=== PATIENT | female | born 1995 | race African-American/Black ===

== ENCOUNTER 2016-02-29 19:32 | Emergency (ER) | payer MEDICAID ==
--- NOTE | 2016-02-29 19:41 | EDPRACDOC ---
- General Information Stated Complaint: RECTAL BLEEDING Time Seen by Provider: 02/29/16 19:38 Home Medications: Home Medications Cephalexin Monohydrate [Keflex] 500 mg PO Q6H #20 cap 02/29/16 Allergies/Adverse Reactions: Allergies Allergy/AdvReac Type Severity Reaction Status Date / Time No Known Allergies Allergy Verified 11/30/15 16:44 - History of Present Illness Onset: TODAY HPI: PT STATES SHE HAS HAD BLOOD IN HER STOOL X 3 TODAY, STATES THAT THE BLOOD IS "BURGUNDY" IN COLOR, LOOSE, NO N/V/D, NO ABDOMINAL PAIN, NO FEVER OR CHILLS. PT STATES THAT SHE HAS HAD "SWEATS" TONIGHT, NO CP OR SOBR. PT STATES THAT SHE DRINKS HEAVILY EVERYDAY, "FIFTH A DAY", ALSO DRINKS "MOONSHINE" REGULARLY, USES XANAX, PERCOCET AND MARIJUANA. PT STATES THAT HER SISTER CALLED [facility] TONIGHT DUE TO HER ETOH USE, THEN EMS WAS CALLED DUE TO BLEEDING AND "MEDICAL CLEARANCE." PT DENIES SI/HI, STATES LAST ETOH INTAKE WAS AT 0300 TODAY. Bleeding Duration: Reports: Intermittent Bleeding Description: Reports: Spontaneous Recent Use Of: Reports: Ethanol Relevant History: Reports: None Prehospital Care: Reports: None Pain Severity: None Amount of Blood: Reports: Other (UNABLE TO QUANTIFY) Vomitus: Reports: None Stools: Reports: Other ("BURGUNDY") Associated Signs and Symptoms: Denies: Chest Pain, Abdominal Pain, Diarrhea, Epistaxis, Menorrhagia, Faintness ED Past Medical History - History Reviewed Yes Nurses notes reviewed and agree except as marked - Patient Medical History Psychological History: Reports: Depression - Social Medical History Smoking Status: Heavy tobacco smoker (5 or more cigarettes/day or daily pipe/ cigar) ETOH: Alcoholic Substance Abuse: Illicit Drugs (THC, XANAX, PERCOCET) Lives With: Family Lives In: Home EDM Review of Systems - Review of Systems Constitutional: negative: Chills, Fever Eyes: negative: Blurred Vision, Double Vision Ears: negative: Drainage Throat: negative: Pain Nose: negative: Congestion, Discharge Respiratory: negative: Cough, Shortness of Breath, Wheezing Cardiovascular: negative: Chest Pain, Palpitations Gastrointestinal: Melena, Nausea. negative: Diarrhea, Pain, Vomiting Genitourinary: negative: Dysuria, Frequency Neurological: negative: Dizziness, Headache, Numbness, Weakness Musculoskeletal: No Symptoms Reported Integumentary: No Symptoms Reported - Physical Exam Constitutional: Alert (Awake), No apparent distress Oriented to: Time, Person, Place Last recorded Vital Signs: Oxygen Pulse Oxygen Saturation O2 Device Oxygen Flow Rate Fraction of Inspired Oxygen ( FIO2) - HEENT Head: Normal ( normocephalic) Eye Exam: Normal (PERRL, EOMI, Sclera white) Oropharynx: Normal (Pharynx:Moist without exudate,Gums-no swelling) Tympanic Membrane: Normal ENT EAC: Normal TMJ: Normal Nose: No Symptoms Reported (septum midline) Neck: Normal (FROM, trachea at midline) - Respiratory/Cardiovascular Respiratory: Normal - CTA (BBS clear to auscultation without adventitious sounds ) Cardiovascular: Normal (RRR without murmur, gallop or rub) - GI Auscultation: Normal (NABS) Palpation: Normal (Soft,No rebound or guarding, non distended) Tenderness: Non tender Encinas's Sign: Negative Rectal Exam: Heme negative stool. negative: Blood Stool: Brown - Musculoskeletal Back: Normal (Non-Tender) Extremities: Normal (Normal tone, Pulses 2+ No cyanosis or edema, FROM) - Integumentary Skin: Normal, Warm, Dry Lymphatics: Normal (no adenopathy) - Neurologic Memory Impaired: Normal Motor Function: Normal (Normal tone, Pulses 2+ No cyanosis or edema, FROM) Cranial Nerve: Normal (CN II-X11 intact sensation, strength 5/5) Cerebellar: Normal Mood Description: Normal Perception: Normal - Differential Diagnosis Diverticulosis, Gastritis, Gastroenteritis, Inflammatory Bowel Dx - Re-evaluation Re-evaluation 1 Re-evaluation Time: 21:31 (PT HAS NO COMPLAINTS, DENIES SI/HI, NO S/S C/W ETOH WITHDRAWL, PROVIDED CONTACT INFORMATION FOR [facility]LE OUT[facility] T[facility]) - Results 02/29/16 20:22 02/29/16 20:22 Decision Time to Discharge: 21:32 - Departure Disposition: Home Condition: Stable Final Diagnosis: Polysubstance abuse UTI (urinary tract infection) Qualifiers: Urinary tract infection type: acute cystitis Hematuria presence: without hematuria Qualified Code(s): N30.00 - Acute cystitis without hematuria Instructions: Urinary Tract Infection in Women (ED) Education/Counseling Given To: Patient Education/Counseling Given Regarding: Diagnosis, Treatment, Prognosis, Follow Up Referrals: Severo Javed MD [Staff Physician] - One Week Prescriptions: Cephalexin Monohydrate [Keflex] 500 mg PO Q6H #20 cap Additional Instructions: PLEASE STOP USING DRUGS AND ALCOHOL, YOU HAVE BEEN PROVIDED CONTACT INFORMATION FOR [facility], [facility], [facility], [facility], [facility], AND [facility]. YOU MAY FOLLOW UP WITH ANY OF THESE FOR ASSISTANCE WITH DETOX.
[2016-02-29] MEDS ORDERED: NS 1,000 ML IV ONE (19:43)
[2016-02-29 19:44] VITALS: TEMP 98.6
[2016-02-29 20:10] LABS: ALL NEG? NO
[2016-02-29 20:23] LABS: MDMA* NEG (NEGATIVE); METHAMPHETAMINES NEG (NEGATIVE); OXYCODONE *POSITIVE* (NEGATIVE)
[2016-02-29 20:29] LABS: AUTOMATED BASOPHIL 0.9 % (0-2); AUTOMATED EOSINOPHIL 0.5 % (0-5); AUTOMATED LYMPH 15.8 % (17-44); AUTOMATED MONOCYTE 5.9 % (3-10); AUTOMATED NEUTROPHIL 76.9 % (45-76); MPV 9.4 fL (7.4-10.4)
[2016-02-29 20:34] LABS: LEUKOCYTES/URINE 2+ (NEGATIVE); NITRITE/URINE NEG (NEGATIVE); URINE OCCULT BLOOD NEG (NEG/TRACE)
[2016-02-29 20:40] LABS: PARTIAL THROMB. TIME 24.6 SEC (22-35); PT-INR 1.1
[2016-02-29 20:47] LABS: BLOOD UREA NITROGEN 13 MG/DL (7-17); CALC CORRECTED 9.1 MG/DL (8.4-10.2); CALCULATED OSMOLALITY 268 MOs/Kg (270-290); CHLORIDE 105 mEq/L (98-107); ETOH-MGDL < 10 mg/dL; GLUCOSE 79 MG/DL (70-99); SODIUM LEVEL 140 mEq/L (137-146); TOTAL PROTEIN 7.6 G/DL (6.3-8.2)
[2016-02-29 21:53] VITALS: BP 135/62; PULSE 88
== END 2016-02-29 21:51 | disposition home or self-care (01) ==
LOC: ED 19:32
DX: F19.10 Other psychoactive substance abuse, uncomplicated (principal); F10.20 Alcohol dependence, uncomplicated; N30.00 Acute cystitis without hematuria; F17.200 Nicotine dependence, unspecified, uncomplicated
CPT/HCPCS: 36415; 80053; 80307; 81001; 81025; 83690; 85025; 85610; 85730; 96360; 99283